=== PATIENT | female | born 1990 | race Caucasian/White ===

== ENCOUNTER 2023-10-12 23:00 | Emergency (ER) | payer OTHER, MEDICAID, SELFPAY ==
[2023-10-12 23:15] VITALS: BP 107/64; PULSE 93; RESP 16; TEMP 36.9; O2SAT 100
--- NOTE | 2023-10-12 23:26 | PC.NURSE ---
At 2300 this RN and FILM TESTS CHECKER went out to assist getting pt out of the car, per the mother the patient was unresponsive but pt was rousable and got herself out of the car and into a wheel chair with the encouragement of the staff. Pt is very drowsy, will wake to answer questions. The mother reports that the patient was given meds at another hospital that make her sleep due to her wanting drugs, pt with hx of drug abuse and was treated in ED in [place].
--- NOTE | 2023-10-12 23:46 | ED_ITS ---
HPI - Overdose General Chief Complaint: Toxicology Problem Stated Complaint: Non responsive Time Seen by Provider: 10/12/23 23:30 Source: patient and family Mode of arrival: Wheelchair History of Present Illness HPI Narrative: 33-year-old female who presents with decreased responsiveness after being present in the emergency department in [address] after being found homeless/cold exposure. Patient was to be discharged and mother states that patient wanted to come home with her. Patient has been transported to [place] patient will not respond to mother, raises concern for drug overdose this patient has a history of drug abuse. Patient arrives via private vehicle, somnolent, in no apparent distress and maintaining her own airway. Related Data Previous Rx's Medication Instructions Recorded sulfamethoxazole 800 1 tab PO BID #10 tabs 07/07/16 mg-trimethoprim 160 mg tablet Allergies Allergy/AdvReac Type Severity Reaction Status Date / Time No Known Drug Allergies Allergy Verified 10/12/23 23:36 Review of Systems Review of Systems ROS Unobtainable: Unobtainable due to mental status/LOC Exam Narrative Exam Narrative: General:? Somnolent, lying comfortably in bed during both exam and interview and in no apparent distress HEENT:? Normocephalic, atraumatic, pupils equal and reactive to light,, trachea midline, neck is supple, normal range of motion Chest:? Normal to inspection, no crepitus, no tenderness Cardiovascular:? 2+ radial bilaterally, regular rhythm/rate. Pulmonary:? Regular respirations, no respiratory distress, lungs clear to a uscultation bilateral Abdomen:? Soft, nontender, nondistended, no guarding or rebound tenderness, no hernia Back: ?No midline spinal tenderness, normal range of motion, no step-off deformities :? Exam deferred Skin:? Warm, dry, intact, no rashes Extremities:? No deformities of bilateral upper/lower extremities, nontender Neuro:? No focal neurological deficits, moving all 4 extremities equally, normal gait, normal speech Psych:? Normal mood, normal affect normal attention Initial Vital Signs Initial Vital Signs: Vital Signs Temperature 98.4 F 10/12/23 23:15 Pulse Rate 93 H 10/12/23 23:15 Respiratory Rate 16 10/12/23 23:15 Blood Pressure 107/64 10/12/23 23:15 Pulse Oximetry 100 10/12/23 23:15 Oxygen Delivery Method Room Air 10/12/23 23:15 Course Course Course Narrative: See MDM Orders Ordered: Discontinued Medications Naloxone HCl (Naloxone 1 Mg/Ml Syringe) 2 mg NASAL NOW ONE Stop: 10/12/23 23:46 Last Admin: 10/12/23 23:50 Dose: 2 mg Documented By: KIMBERLEE Vital Signs Vital signs: Vital Signs - 8 hr 10/12/23 23:15 10/13/23 00:00 10/13/23 01:23 Temperature 98.4 F Pulse Rate 93 H 92 H 88 Respiratory Rate 16 16 16 Blood Pressure 107/64 133/68 130/88 Pulse Oximetry 100 97 100 Oxygen Delivery Method Room Air Room Air Room Air MDM - Overdose Differential Diagnosis Differential diagnosis: Likely drug overdose, accidental drug ingestion and other (malingering, drug abuse) MDM Narrative Medical decision making narrative: Patient presents with a history of drug abuse, homelessness as reported per mother. Patient was driven from [place] after being discharged from their ED just prior to arrival. Mother is concerned the patient will lobe and would like patient to be evaluated for drug addiction and rehabilitation. Patient initially somnolent but appears the patient is very awake, alert and aware of her surroundings this patient has been arguing with her mother, taking her phone in order to call her boyfriend, but refusing to interact with staff, pretending to sleep. Patient was given Narcan intranasal for possible opioid overdose, but no true changes in symptoms and seen patient has voluntary alertness and behavior more suggestive of issues with family dynamics than any acute medical concern. Mother eventually states that she alleviating as she is frustrated with her child, knows that she is an adult and is going home to manage her own headache. Patient reportedly has her boyfriend coming to pick her up. Patient requests discharge to be with her boyfriend, but wanting to sleep in ED bed. Patient able to ambulate well without assistance at time of discharge. Patient encouraged to follow up with primary care provider for further evaluation and management along with outpatient psychiatric services. Naloxone at Discharge Meets criteria for naloxone at discharge?: Yes (Prescription for naloxone given at [place]) Discharge Plan Departure Patient Disposition: Home Clinical Impression: Substance Abuse Instructions: DI for Substance Use Disorder Prescriptions: No Action sulfamethoxazole-trimethoprim 800 MG/160 MG tablet 1 tab PO BID Qty: 10 0RF Referrals: Kelly Card MD [Physician] - As soon as possible Stand Alone Forms: Patient Portal/API
[2023-10-12] MEDS: NALOXONE 1 MG/ML SYRINGE 2 MG NASAL (23:50)
[2023-10-13] VITALS: BP 133/68; PULSE 92; RESP 16; O2SAT 97
[2023-10-13 01:23] VITALS: BP 130/88; PULSE 88; RESP 16; O2SAT 100
== END 2023-10-13 01:25 | disposition home or self-care (01) ==
PROVIDERS: Emergency Provider Emergency Medicine
DX: F19.10 Other psychoactive substance abuse, uncomplicated (principal)
CPT/HCPCS: 99283; J2310